=== PATIENT | male | born 1980 | race African-American/Black ===

== ENCOUNTER 2021-05-13 11:52 | Emergency (ER) | payer SELFPAY ==
[~2021-05-13] VITALS: Ht 175.3 cm; Wt 79.4 kg
[2021-05-13 12:17] VITALS: BP 120/80
[2021-05-13] MEDS ORDERED: KETOROLAC TROMETH 60MG/2ML VIAL IM ONE (13:15)
== END 2021-05-13 14:00 | disposition home or self-care (01) ==
LOC: ER 11:52
DX: G44.029 Chronic cluster headache, not intractable (principal)
CPT/HCPCS: 96372; 99283; J1885

== ENCOUNTER 2024-01-13 10:26 | Emergency (ER) | payer MEDICAID | END 2024-01-13 10:37 | disposition left against medical advice (07) | LOC: ER 10:26 | DX: M79.671 Pain in right foot (principal); Z53.21 Procedure and treatment not carried out due to patient leaving prior to being seen by health care provider ==